=== PATIENT | female | born 1970 | race Caucasian/White ===

== ENCOUNTER 2019-03-06 17:14 | Emergency (ER) | payer OTHER ==
[~2019-03-06] VITALS: Ht 160 cm; Wt 98.7 kg
[~2019-03-06 17:14] MED LIST: PHEN177S43 MT
[2019-03-06 17:24] VITALS: Ht 160 cm; Wt 98.7 kg
[2019-03-06] MEDS ORDERED: LIDOCAINE/MYLANTA 40 ML BTL PO ONE (18:30)
[2019-03-06 19:32] VITALS: BP 125/76; PULSE 76; RESP 17
== END 2019-03-06 19:32 | disposition home or self-care (01) ==
LOC: FTE 17:14
DX: R09.89 Other specified symptoms and signs involving the circulatory and respiratory systems (principal); Z00.00 Encounter for general adult medical examination without abnormal findings
CPT/HCPCS: 70490; 71250; Z7502; Z7610